=== PATIENT | male | born 1930 | race Caucasian/White ===

== ENCOUNTER 2018-11-15 19:59 | Inpatient (IN) | payer MEDICARE, BC ==
[~2018-11-15] VITALS: Ht 170.2 cm; Wt 78.0 kg
--- NOTE | 2018-11-15 20:10 | NUR ---
PAGED DR NEWMAN'S OFFICE FOR CONSULT
[2018-11-15] MEDS ORDERED: MEMA10TA PO (20:14)
[2018-11-15] MEDS ORDERED: LEVO50TA PO (20:14)
[2018-11-15] MEDS ORDERED: ASPI-1169 PO (20:14)
[2018-11-15] MEDS ORDERED: ATOR80TA PO (20:14)
[2018-11-15] MEDS ORDERED: ACET-73 PO (20:14)
[2018-11-15] MEDS ORDERED: OMEP20CA11 PO (20:14)
[2018-11-15] MEDS ORDERED: CILO100T PO (20:14)
[2018-11-15] MEDS ORDERED: METO25TA6 PO (20:14)
[2018-11-15] MEDS ORDERED: TAMS-12 PO (20:14)
[2018-11-15] MEDS ORDERED: MULT-213 PO (20:14)
[2018-11-15] MEDS ORDERED: [UNRECOGNIZED DRUG - CODE] TP (20:14)
[2018-11-15] MEDS ORDERED: ACET-907 PO (20:14)
--- NOTE | 2018-11-15 20:23 | NUR ---
FARSHAD FROM [facility] ON [facility]. TO ER BED 10. AAOX2. NO RESP DISTRESS NOTED. BROUGHT IN FOR L HIP FRACTURE. PT OBTAINED A FALL ON 11/11/18 AT THE FACILITY. STARTED TO COMPLAINT OF PAIN, XRAY DONE AND SHOWED FRACTURE ON L FEMORAL HEAD. PT NOTED +SHORTENING AND +EXTERNAL RORATION. PAIN 10/10 WITH MOVEMENT OTHER GARCIA NONE. MD WAS AT BEDSIDE. ORDERS RECEIVED, NOTED AND CARRIED OUT. IV LINE OBTAINED ON RFA 20G. BLOOD DRAW AND GIVEN TO VICE PRESIDENT OF TALENT MANAGEMENT AT BEDSIDE. XRAY AT BESIDE.
[2018-11-15 20:27] LABS: BASOPHILS # (AUTO) 0.1 /CMM (0.0-0.2); BASOPHILS % (AUTO) 0.5 % (0.0-2.0); EOSINOPHILS % (AUTO) 3.3 % (0.0-6.0); HEMATOCRIT 34 % (39-51); HEMOGLOBIN 11.6 g/dL (13.5-17.5); LYMPHOCYTES % (AUTO) 9.5 % (20.0-44.0); MEAN CORPUSCULAR HGB CONC 34 g/dl (31.0-36.0); MEAN CORPUSCULAR VOLUME 88 fL (80-96); NEUTROPHILS # (AUTO) 7.7 /CMM (1.8-8.9); NEUTROPHILS % (AUTO) 76.7 % (43.0-81.0); PLATELET COUNT (AUTO) 226 /CMM (150-450); RED BLOOD CELL COUNT(AUTO) 3.86 MIL/uL (4.5-6.0)
[2018-11-15] MEDS ORDERED: KETOROLAC TROMETHAMINE 15 MG/ML VIAL ONE (20:28)
[2018-11-15] MEDS ORDERED: IV NS 0.9% 1,000 ML BAG IV ONE (20:30)
[2018-11-15] MEDS ORDERED: KETOROLAC TROMETHAMINE INJ 30 MG/ML VIAL IV ONE (20:30)
--- NOTE | 2018-11-15 20:30 | NUR ---
RECIEVED BED 203
[2018-11-15 20:34] LABS: CALCIUM, SERUM 8.6 mg/dL (8.5-10.1); CARBON DIOXIDE 24 mmol/L (21-32); CHLORIDE 104 mmol/L (98-107); CREATININE 1.5 mg/dL (0.6-1.3); GLUCOSE 122 mg/dL (74-106); POTASSIUM 4.2 mmol/L (3.5-5.1); SODIUM SERUM 138 mmol/L (136-145); UREA NITROGEN, BLOOD 24 mg/dL (7-18)
--- NOTE | 2018-11-15 20:58 | NUR ---
REPORT GIVEN TO RV, RN FOR TERESITA/ PT TO ROOM 203
[2018-11-15 21:05] VITALS: BP 133/69
--- NOTE | 2018-11-15 21:05 | NUR ---
RECEIVED PATIENT FROM ER FOR DX LEFT HIP FRACTURE. AO X 1, ABLE TO MAKE NEEDS KNOWN. NO ACUTE DISTRESS NOTED. PATIENT HAS PAIN WHEN BEING MOVED ONLY. IV SITE PATENT, INTACT; FLUSHED. SKIN ASSESSMENT COMPLETED. HIP PRECAUTION MAINTAINED. SAFETY REMINDERS GIVEN. ON LOW BED WITH BILATERAL UPPER SIDE RAILS UP. CALL REICH WITHIN EASY REACH. WILL CONTINUE TO MONITOR. RECEIVED DR. LLOYD WELSH'S ORDERS ON PAPER; WILL CARRY OUT.
--- NOTE | 2018-11-15 21:30 | NUR ---
PT TRANSPORTED TO UNIT ON GURNEY WITH EMT AT BEDSIDE. PT IS STABLE TO BE TRANSPORTED TO UNIT. NAD NOTED PRIOR TO TRANSPORT.
[2018-11-15 21:48] VITALS: BP 133/69
[2018-11-15] MEDS: IV NS 0.9% 1,000 ML IV PRN (23:07)
--- NOTE | 2018-11-16 01:00 | NUR ---
PATIENT ASLEEP, EASILY AROUSABLE. NO ACUTE DISTRESS NOTED. WILL CONTINUE TO MONITOR.
--- NOTE | 2018-11-16 06:30 | NUR ---
PATIENT ASLEEP, EASILY AROUSABLE. RESPIRATIONS EVEN. NO SIGNS OF PAIN NOTED. NPO SINCE MIDNIGHT. IVF INFUSING ORDERED. NEEDS ATTENDED. KEPT CLEAN AND DRY. SAFETY PRECAUTIONS AND COMFORT MEASURES IN PLACE. WILL GIVE REPORT TO DAY SHIFT FOR CONTINUITY OF CARE.
[2018-11-16 06:43] LABS: BASOPHILS % (AUTO) 0.5 % (0.0-2.0); EOSINOPHILS % (AUTO) 2.9 % (0.0-6.0); HEMATOCRIT 30 % (39-51); HEMOGLOBIN 10.2 g/dL (13.5-17.5); LYMPHOCYTES % (AUTO) 9.7 % (20.0-44.0); MEAN CORPUSCULAR HGB CONC 34 g/dl (31.0-36.0); MEAN CORPUSCULAR VOLUME 88 fL (80-96); MONOCYTES # (AUTO) 0.8 /CMM (0.1-1.30); MONOCYTES % (AUTO) 8.4 % (2.0-12.0); NEUTROPHILS # (AUTO) 7.7 /CMM (1.8-8.9); NEUTROPHILS % (AUTO) 78.5 % (43.0-81.0); PLATELET COUNT (AUTO) 210 /CMM (150-450); RED BLOOD CELL COUNT(AUTO) 3.39 MIL/uL (4.5-6.0); WHITE BLOOD COUNT (AUTO) 9.8 K/uL (4.3-11.0)
[2018-11-16 06:56] LABS: CREATININE 1.3 mg/dL (0.6-1.3); MAGNESIUM 1.6 mg/dL (1.8-2.4); PHOSPHORUS 3.1 mg/dL (2.5-4.9); POTASSIUM 3.8 mmol/L (3.5-5.1)
--- NOTE | 2018-11-16 07:06 | NUR ---
RN OPENING NOTE PT WAS RECEIVED IN BED AT LOWEST AND LOCKED POSITION WITH SIDE RAILS UP X2, A/O X1 BREATHING EVEN AND UNLABORED ON RA WITH NO S/S OF ANY DISTRESS OR PAIN AT THIS TIME, IV IS PATENT AND INTACT WITH IVF RUNNING, INFORMED THAT PT HAS BUE DISCOLORATION; UPPER LIP SCAB; AND INTERGLUTEAL CLEFT WOUND WITH WOUND CARE CONSULT ORDERED. PER NIGHT RN SHE WAS UNABLE TO GET RECORDS FROM [facility] BUT WAS INFORMED THAT XRAY WAS DONE AT FACILITY AND PT WAS NOTED TO HAVE LEFT PROXIMAL FEMUR FX. SAFETY PRECAUTIONS IN PLACE, CALL LIGHT WITHIN REACH, WILL MONITOR PT ACCORDINGLY
[2018-11-16 08:00] VITALS: BP 136/63
[2018-11-16] MEDS: ENOXAPARIN SODIUM 40 MG/0.4 ML DISP.SYRIN SQ SCH (08:31)
--- NOTE | 2018-11-16 08:31 | NUR ---
RN NOTE PER DR. PATY MERIDA TO HOLD DOSE OF SCHEDULED LOVENOX DUE TO POSSIBLE SURGERY. SURGEON WILL COME AND ASSESS PT PER
[2018-11-16] MEDS: PANTOPRAZOLE 40 MG TABLET.DR PO SCH (08:42)
[2018-11-16] MEDS: MEMANTINE HCL 5 MG TABLET PO SCH ×2 (08:50→17:07)
[2018-11-16] MEDS: TAMSULOSIN 0.4 MG CAP.SR.24H PO SCH (08:50)
[2018-11-16] MEDS: METOPROLOL TARTRATE 25 MG TABLET PO SCH ×2 (08:50→17:07)
[2018-11-16] MEDS: MULTIVIT W/MINERALS 1 TAB TABLET PO SCH (08:51)
[2018-11-16] MEDS: LEVOTHYROXINE SODIUM 50 MCG TABLET PO SCH (08:51)
[2018-11-16] MEDS: CILOSTAZOL 100 MG TABLET PO SCH ×2 (08:51→17:07)
[2018-11-16] MEDS ORDERED: ACETAMINOPHEN 325 MG TABLET PO PRN (09:00)
--- NOTE | 2018-11-16 09:10 | NUR ---
RN NOTE ORDER FOR STAT EKG GIVEN BY , EKG DONE BY RT AND MADE AWARE OF RESULTS AT THIS TIME
--- NOTE | 2018-11-16 09:25 | NUR ---
RN NOTE XRAY DONE AT THIS TIME
[2018-11-16] MEDS: IV NS 0.9% 1,000 ML IV PRN (09:46)
[2018-11-16] MEDS: Magnesium 1GM/D5W 100ML PREMIX 100 ML IV SCH ×2 (11:18→12:07)
--- NOTE | 2018-11-16 11:48 | NUR ---
RN NOTE CALEB DESAI MADE AWARE OF CONSULT FOR PATIENT AT THIS TIME, WILL AWAIT TO BE SEEN BY SURGERY
--- NOTE | 2018-11-16 15:14 | NUR ---
RN NOTE REAL ELLIS MESSAGED AT THIS TIME REGARDING PT WANTING TO EAT, INFORMED THAT HE CAN EAT AND THAT SURGERY WILL BE DONE ON MONDAY IN AM
[2018-11-16 16:36] VITALS: BP 125/82
[2018-11-16] MEDS: ATORVASTATIN 40 MG TABLET PO SCH (17:06)
--- NOTE | 2018-11-16 18:20 | NUR ---
RN NOTE RIGHT FA IV REMOVED DUE TO INFILTRATION, NEW IV STARTED ON LEFT FA GAUGE 22 AT THIS TIME
--- NOTE | 2018-11-16 18:43 | NUR ---
RN CLOSING NOTE PT IN BED AT LOWEST AND LOCKED POSITION WITH SIDE RAILS UP X2, AWAKE AND ALERT BREATHING EVEN AND UNLABORED WITH NO DISTRESS OR ANY PAIN AT THIS TIME, IV IS PATENT AND INTACT, PLAN FOR SURGERY MONDAY IN AM, SAFETY PRECAUTIONS IN PLACE, CALL LIGHT WITHIN REACH, ALL NEEDS ATTENDED TO, WILL ENDORSE TO NIGHT RN FOR TERESITA.
[2018-11-16 20:00] VITALS: BP 133/66
--- NOTE | 2018-11-16 20:00 | NUR ---
MS RN NOTES RECEIVED PATIENT AWAKE AND CALM IN BED. NO DISTRESS NOTED. CALL LIGHT WITHIN REACH. NO C/O PAIN OR DISCOMFORT. PERIPHERAL LINE INTACT AND PATENT. BED IN LOW LOCK SETTING. ROOM FREE OF CLUTTER AND BELONGINGS KEPT NEAR BEDSIDE. BED ALARM ON AND FUNCTIONING PROPERLY. WILL CONTINUE TO MONITOR.
[2018-11-17 06:40] LABS: CALCIUM, SERUM 8.4 mg/dL (8.5-10.1); POTASSIUM 4.2 mmol/L (3.5-5.1)
--- NOTE | 2018-11-17 07:15 | NUR ---
MS RN NOTES PATIENT AWAKE IN BED WITH NO DISTRESS NOTED. CALL LIGHT WITHIN REACH. NO FURTHER C/O PAIN OR DISCOMFORT. ALL DUE MEDS GIVEN ORDERED WITH NO ASE NOTED. PERIPHERAL LINE INTACT AND PATENT. BED IN LOW LOCK SETTING. ALL BELONGINGS KEPT NEAR BEDSIDE. WILL ENDORSE TO ONCOMING SHIFT.
--- NOTE | 2018-11-17 07:33 | NUR ---
MS RN OPENING NOTES RECEIVED PT LAYING IN BED, A/O X1. RESPIRATIONS ARE EVEN AND UNLABORED, NOT IN ANY ACUTE DISTRESS NOTED. NO C/O PAIN AT THIS TIME, NO C/O SOB, N/V. IV SITE TO LFA INTACT, NO INFILTRATION NOTED. DRESSING KEPT CLEAN AND DRY. IV FLUIDS RUNNING AT 75ML/HR, TOLERATING WELL. SAFETY MEASURES ARE IN PLACE. INSTRUCTED PT TO USE CALL LIGHT WHEN ASSISTANCE IS NEEDED, CALL LIGHT IS LEFT WITHIN REACH. WILL MONITOR THROUGHOUT SHIFT FOR CONTINUITY OF CARE.
[2018-11-17 08:00] VITALS: BP 158/73
[2018-11-17] MEDS: CILOSTAZOL 100 MG TABLET PO SCH ×2 (08:30→17:27)
[2018-11-17] MEDS: MULTIVIT W/MINERALS 1 TAB TABLET PO SCH (08:31)
[2018-11-17] MEDS: TAMSULOSIN 0.4 MG CAP.SR.24H PO SCH (08:31)
[2018-11-17] MEDS: METOPROLOL TARTRATE 25 MG TABLET PO SCH ×2 (08:31→17:27)
[2018-11-17] MEDS: ENOXAPARIN SODIUM 40 MG/0.4 ML DISP.SYRIN SQ SCH ×2 (08:31→09:17)
[2018-11-17] MEDS: PANTOPRAZOLE 40 MG TABLET.DR PO SCH (08:31)
[2018-11-17] MEDS: LEVOTHYROXINE SODIUM 50 MCG TABLET PO SCH (08:31)
[2018-11-17] MEDS: MEMANTINE HCL 5 MG TABLET PO SCH ×2 (08:31→17:27)
--- NOTE | 2018-11-17 12:00 | NUR ---
MS RN NOTES-- DTR YOMI AT BEDSIDE, SIGNED CONSENTS FOR FATHER FOR PROCEDURE TOMORROW.
--- NOTE | 2018-11-17 12:45 | NUR ---
MS RN NOTES-- PT ABLE TO MAKE NEEDS KNOWN. NEEDS MET AND RENDERED. PT DOES NOT APPEAR TO BE IN ANY APPARENT DISTRESS. WILL CONTINUE TO MONITOR.
[2018-11-17] MEDS: IV NS 0.9% 1,000 ML IV PRN (14:53)
[2018-11-17 16:00] VITALS: BP 148/76
[2018-11-17] MEDS: ATORVASTATIN 40 MG TABLET PO SCH (17:27)
--- NOTE | 2018-11-17 18:41 | NUR ---
MS RN CLOSING NOTES ALL DUE MEDS GIVEN, NEEDS MET AND RENDERED. PT IS A/O X1, AFEBRILE. RESPIRATIONS ARE EVEN AND UNLABORED, NOT IN ANY ACUTE DISTRESS NOTED. PT DENIES ANY PAIN AT THIS TIME, NO C/O SOB, N/V. IV SITE TO LFA INTACT, NO INFILTRATION NOTED. DRESSING KEPT CLEAN AND DRY. SAFETY MEASURES ARE IN PLACE. WILL ENDORSE TO NEXT SHIFT FOR CONTINUITY OF CARE.
--- NOTE | 2018-11-17 19:50 | NUR ---
MS RN NOTES RECEIVED ON BED A/O X1,S/P FALL AT THE FACILITY 2 WEEKS AGO AND SUSTAINED LEFT HIP FRACTURE.PLAN SURGERY IN THE MORNING.WITH IVF NS AT 75ML/HR RATE ON LFA.FALL PRECAUTION OBSERVED.BED ON LOWEST POSITION AND LOCKED.CALL LIGHT IN REACH,NEEDS ANTICIPATED.
[2018-11-17 20:00] VITALS: BP 134/65
--- NOTE | 2018-11-18 03:00 | NUR ---
MS RN NOTES NOTED REDNESS ON IV SITE.NEW SALINE LOCK PLACE ON RIGHT WRIST #20,SAME IVF INFUSING
[2018-11-18] MEDS: MORPHINE SULFATE INJ 2 MG/ML DISP.SYRIN IV PRN ×2 (03:30→12:59)
--- NOTE | 2018-11-18 03:30 | NUR ---
MS RN NOTES PAIN MANAGEMENT APPEARS RESTLESS,MOANS WHEN REPOSITION.MEDICATED WITH MORPHINE SULFATE 2MG IV FOR SEVERE PAIN ORDERED
[2018-11-18] MEDS: IV NS 0.9% 1,000 ML IV PRN ×2 (04:55→23:09)
--- NOTE | 2018-11-18 06:37 | NUR ---
MS RN NOTES KEPT NPO POST MIDNIGHT FOR LEFT HI FRED ARTHROPLASTY THIS MORNING,NS AT 75ML/HR RATE IN PROGRESS.NPO EXCEPT MEDS.CALL I IN REACH,NEED ANTICIPATED.
[2018-11-18 07:10] LABS: BASOPHILS # (AUTO) 0.1 /CMM (0.0-0.2); BASOPHILS % (AUTO) 0.7 % (0.0-2.0); EOSINOPHILS % (AUTO) 2.9 % (0.0-6.0); HEMATOCRIT 30 % (39-51); HEMOGLOBIN 10.2 g/dL (13.5-17.5); LYMPHOCYTES # (AUTO) 1.2 /CMM (0.8-4.8); LYMPHOCYTES % (AUTO) 14.4 % (20.0-44.0); MEAN CORPUSCULAR HGB CONC 34 g/dl (31.0-36.0); MEAN CORPUSCULAR VOLUME 87 fL (80-96); MONOCYTES # (AUTO) 0.8 /CMM (0.1-1.30); MONOCYTES % (AUTO) 10.1 % (2.0-12.0); NEUTROPHILS # (AUTO) 5.8 /CMM (1.8-8.9); NEUTROPHILS % (AUTO) 71.9 % (43.0-81.0); PLATELET COUNT (AUTO) 271 /CMM (150-450); RED BLOOD CELL COUNT(AUTO) 3.46 MIL/uL (4.5-6.0); WHITE BLOOD COUNT (AUTO) 8.1 K/uL (4.3-11.0)
--- NOTE | 2018-11-18 07:20 | NUR ---
RN OPENING NOTES RECEIVED PATIENT IN BED RESTING. A/OX1. NOT IN ANY FORM OF DISTRESS. NO SOB. NO S/S OF PAIN OR DISCOMFORT AT THIS TIME. IV ACCESS INTACT AND PATENT. KEPT NPO. FOR SURGERY THIS AM. BED IN LOW/LOCKED POSITION, SIDERAILS UP,CALL LIGHT IN REACH. WILL CONTINUE TO MONIOTR ACCORDINGLY.
[2018-11-18 07:29] LABS: ALBUMIN 2.3 g/dL (3.4-5.0); BILIRUBIN,TOTAL 1.6 mg/dL (0.2-1.0); CALCIUM, SERUM 8.1 mg/dL (8.5-10.1); MAGNESIUM 1.8 mg/dL (1.8-2.4); PHOSPHORUS 2.7 mg/dL (2.5-4.9); POTASSIUM 3.8 mmol/L (3.5-5.1); TOTAL PROTEIN, SERUM 5.6 g/dL (6.4-8.2)
[2018-11-18] MEDS: LEVOTHYROXINE SODIUM 50 MCG TABLET PO SCH (07:30)
[2018-11-18] MEDS: PANTOPRAZOLE 40 MG TABLET.DR PO SCH (07:30)
[2018-11-18 08:00] VITALS: BP 152/67
[2018-11-18] MEDS ORDERED: ANESTHESIA TRAY IN PYXIS 1 EA TRAY MC ONE (08:24)
[2018-11-18] MEDS ORDERED: BACITRACIN 50000 UNITS/VIAL ONE (08:24)
[2018-11-18] MEDS ORDERED: BUPIVACAINE MPF 0.5% W/EPI INJ 30 ML VIAL ONE (08:25)
--- NOTE | 2018-11-18 08:45 | NUR ---
PATIENT PICKED UP FOR SURGERY. Addendum: 11/18/18 at 0859 by CALEB LARA ERIC MEDAlethea OLIVER ADMIN. PATIENT ON SURGERY
[2018-11-18] MEDS ORDERED: FENTANYL PF 100MCG/2ML AMPUL ONE (08:49)
[2018-11-18] MEDS ORDERED: ROCURONIUM BROMIDE 50 MG/5 ML ONE (08:49)
[2018-11-18] MEDS: CILOSTAZOL 100 MG TABLET PO SCH ×2 (09:00→16:32)
[2018-11-18] MEDS: ENOXAPARIN SODIUM 40 MG/0.4 ML DISP.SYRIN SQ SCH (09:00)
[2018-11-18] MEDS: MEMANTINE HCL 5 MG TABLET PO SCH ×2 (09:00→16:33)
[2018-11-18] MEDS: METOPROLOL TARTRATE 25 MG TABLET PO SCH ×2 (09:00→16:33)
[2018-11-18] MEDS: MULTIVIT W/MINERALS 1 TAB TABLET PO SCH (09:00)
[2018-11-18] MEDS: TAMSULOSIN 0.4 MG CAP.SR.24H PO SCH (09:00)
[2018-11-18 11:56] VITALS: BP 127/71
--- NOTE | 2018-11-18 12:00 | NUR ---
rn notes called mely villa, verified patient's diet. per nsg transportation department supervisor[facility], thin liquid, and no added salt.
--- NOTE | 2018-11-18 12:00 | NUR ---
patient came back from surgery. patient in stable condition. patient had left hip hemiarthroplasty. noted with abductor pillow, left knee immobilizer, and scd pumps in place. gudino catheter in place with clear yellow urine draining well. on 2lpm o2 via NC. orders to resume pre-op orders. will moniotr accordingly
[2018-11-18 12:30] VITALS: BP 129/70
--- NOTE | 2018-11-18 12:30 | NUR ---
rn notes girlfriend at bedside feeding the patient. patient tolerated well.
[2018-11-18 16:00] VITALS: BP 126/66
[2018-11-18] MEDS: CEFAZOLIN 2 GM in IV D5W 100 ML IV SCH (16:32)
[2018-11-18] MEDS: ATORVASTATIN 40 MG TABLET PO SCH (17:08)
--- NOTE | 2018-11-18 19:16 | NUR ---
rn closing notes patient in stable condition. all needs attended and provided. all due medications given as ordered. kept patient safe and comfortable. turned and repositioned every 2 hrs as needed. maintained hip precautions. bed in low/locked position, siderails upx2, call light in reach. endorsed to night rn for caroline.
--- NOTE | 2018-11-18 19:25 | NUR ---
MS RN NOTES RECEIVED LAYING COMFORTABLY ON BED,S/P LEFT HIP HEMIARTHROPLASTY TODAY 11/[address] GODWIN.DRESSING INTACT AND DRY,ICE PACK IN PLACE,DVT PUMP IN USED ,ON GEL BED FOR SKIN MANAGEMENT.WITH IVF NS AT 75ML/HR RATE VIA IV PUMP ON RIGHT WRIST,SITE PATENT.WILL CONTINUE TO MONITOR STATUS.
[2018-11-18 20:00] VITALS: BP 129/77
[2018-11-18 20:09] VITALS: BP 129/77
--- NOTE | 2018-11-18 23:14 | NUR ---
MS RN NOTES REPOSITION TO LEFT SIDE,ABDUCTION PILLOW IN PLACE
[2018-11-19] MEDS: CEFAZOLIN 2 GM in IV D5W 100 ML IV SCH ×2 (00:25→09:37)
[2018-11-19] MEDS: MORPHINE SULFATE INJ 2 MG/ML DISP.SYRIN IV PRN ×3 (03:59→23:20)
--- NOTE | 2018-11-19 03:59 | NUR ---
MS RN NOTES REPOSITION,SCREAMS,MEICATED WITH MORPHINE 2MG IV ORDERED
--- NOTE | 2018-11-19 06:31 | NUR ---
MS RN NOTES FAIRLY RESTED.PAIN MANAGEMENT EFFECTIVE.IVF IN PROGRESS AT SAME RATE.DVT PUMP IN USED..LEFT HIP INCISION DRESSING INTACT AND DRY.AFEBRILE.O2 USED ON AND OFF.WILL ENDORSE TO DAY PAZRSE FOR TERESITA.
[2018-11-19 07:10] LABS: BILIRUBIN,TOTAL 0.9 mg/dL (0.2-1.0); CALCIUM, SERUM 7.7 mg/dL (8.5-10.1); CREATININE 1.2 mg/dL (0.6-1.3); MAGNESIUM 1.7 mg/dL (1.8-2.4); PHOSPHORUS 2.6 mg/dL (2.5-4.9); POTASSIUM 4.1 mmol/L (3.5-5.1); TOTAL PROTEIN, SERUM 5.3 g/dL (6.4-8.2)
[2018-11-19 07:15] LABS: BASOPHILS % (AUTO) 0.1 % (0.0-2.0); HEMATOCRIT 28 % (39-51); HEMOGLOBIN 9.4 g/dL (13.5-17.5); LYMPHOCYTES # (AUTO) 0.7 /CMM (0.8-4.8); MEAN CORPUSCULAR HGB CONC 34 g/dl (31.0-36.0); MEAN CORPUSCULAR VOLUME 88 fL (80-96); MONOCYTES # (AUTO) 1.1 /CMM (0.1-1.30); MONOCYTES % (AUTO) 8.9 % (2.0-12.0); NEUTROPHILS # (AUTO) 10.3 /CMM (1.8-8.9); PLATELET COUNT (AUTO) 297 /CMM (150-450); RED BLOOD CELL COUNT(AUTO) 3.22 MIL/uL (4.5-6.0); WHITE BLOOD COUNT (AUTO) 12.1 K/uL (4.3-11.0)
--- NOTE | 2018-11-19 07:30 | NUR ---
MS/RN Patient received. Patient received from slot shift supervisor. A/O X1-2, appears in no distress or discomfort at this time. IV fluids continue at 75ml/hr, no signs of infiltration seen. Safety measures in place, side rails X3 in upright position, brakes locked, bed alarm working. Will continue to monitor and ensure safety.
[2018-11-19] MEDS: PANTOPRAZOLE 40 MG TABLET.DR PO SCH (07:57)
[2018-11-19] MEDS: LEVOTHYROXINE SODIUM 50 MCG TABLET PO SCH (07:57)
[2018-11-19 08:00] VITALS: BP 134/62
[2018-11-19] MEDS: MULTIVIT W/MINERALS 1 TAB TABLET PO SCH (08:17)
[2018-11-19] MEDS: ACETAMINOPHEN ES 500 MG TABLET PO PRN (08:17)
[2018-11-19] MEDS: TAMSULOSIN 0.4 MG CAP.SR.24H PO SCH (08:17)
[2018-11-19] MEDS: METOPROLOL TARTRATE 25 MG TABLET PO SCH ×2 (08:18→16:26)
[2018-11-19] MEDS: MEMANTINE HCL 5 MG TABLET PO SCH ×2 (08:18→16:26)
[2018-11-19] MEDS: NEOMY SULF/BACITRAC ZN/POLY 15 GM TUBE TP SCH ×2 (08:20→16:28)
[2018-11-19] MEDS: CILOSTAZOL 100 MG TABLET PO SCH ×2 (08:20→17:00)
[2018-11-19] MEDS: ENOXAPARIN SODIUM 40 MG/0.4 ML DISP.SYRIN SQ SCH (08:20)
--- NOTE | 2018-11-19 08:30 | NUR ---
MS/RN S/B Dr Mahoney Seen by Dr Mahoney - no new orders, possible ARU placement upon discharge.
--- NOTE | 2018-11-19 08:50 | NUR ---
MS/RN Diet change Diet changed to puree as patient having trouble chewing due to lack of dentures.
--- NOTE | 2018-11-19 09:00 | NUR ---
MS/RN Medications Morning medications administered as ordered, crushed with apple sauce.
[2018-11-19] MEDS: Magnesium 1GM/D5W 100ML PREMIX 100 ML IV SCH ×2 (09:38→10:33)
--- NOTE | 2018-11-19 10:17 | NUR ---
WOUND CARE CONSULT WOUND CARE RECEIVED CONSULT FOR INTERFLUTEAL CLEFT OPEN AREA, LEFT LATERAL HEEL POSSIBLE DTI. WOUND CARE WILL DEFER CONSULT AND TREATMENT PLANS TO PLASTIC SURGICAL TEAM INCLUDING DPM WHO ARE ALL CURRENTLY FOLLOWING THIS PATIENT. PATIENT WITH LUIS AT 16, ALL PRESSURE ULCER PREVENTION MEASURES ARE NOTED TO BE IN PLACE AT THIS TIME. WILL SEE PRN.
--- NOTE | 2018-11-19 11:29 | NUR ---
MS/RN S/B Dr Churchill Seen by Dr Churchill - continue with all current medications and physical therapy.
[2018-11-19] MEDS: IV NS 0.9% 1,000 ML IV PRN (13:39)
[2018-11-19] MEDS: Z GUARD REMEDY 2 OZ OINT TP SCH ×2 (13:52→21:29)
[2018-11-19] MEDS: CLOTRIMAZOLE 1% 15 GM TUBE TP SCH ×2 (13:52→16:28)
--- NOTE | 2018-11-19 13:52 | NUR ---
MS/RN S/B Wound care Seen by wound care - orders noted and carried out. Left elbow: -cleanse with normal saline, pat drt, apply triple antibiotic ointment BID and prn. Left knee scab: -cleanse with normal saline, pat dry, and paint with betadine daily and prn. Buttocks: -apply z guard every shift and prn at each diaper change, Scrotum: -apply lotrimin every shift and prn.
[2018-11-19 16:00] VITALS: BP 110/64
[2018-11-19 16:10] VITALS: BP 110/64
[2018-11-19] MEDS: ATORVASTATIN 40 MG TABLET PO SCH (17:42)
--- NOTE | 2018-11-19 18:14 | NUR ---
MS/RN End note Patient remains in stable condition, all needs attended. Wound care as ordered, heels off loaded on pillows, assisted to turn and reposition every two to three hours to prevent further skin breakdown. Buttocks at this time pink, z guard applied to protect skin. Safety measures remain in place, bed alarm on, side rails X3 in upright position. Will continue to monitor and endorse to warehouse worker 2nd shift.
--- NOTE | 2018-11-19 19:35 | NUR ---
RN MS OPENING NOTE RECEIVED PT I BED, AWAKE ALERT ORIENTED X 1-2 HARD OF HEARING. BREATHING EVEN AND UNLABORED ON 2L OF NC. NO COMPLAINT OF PAIN OR DISCOMFORT AT THIS TIME. IV ACCESS ON THE R WRIST 20G WITH NS @75ML/HR. MARIE CATH IN PLACE, BED IN LOWEST LOCKED POSITION, CALL LIGHT WITHIN REACH AT ALL TIMES, WILL CONTINUE TO MONITOR.
[2018-11-19 20:00] VITALS: BP 124/62
[2018-11-19 21:31] VITALS: BP 124/62
[2018-11-20] MEDS: IV NS 0.9% 1,000 ML IV PRN (02:11)
--- NOTE | 2018-11-20 06:10 | NUR ---
RN MS CLOSING NOTE PT REMAINS IN BED, AWAKE ALERT ORIENTED X 1-2 HARD OF HEARING. BREATHING EVEN AND UNLABORED ON 2L OF NC. NO COMPLAINT OF PAIN OR DISCOMFORT AT THIS TIME. IV ACCESS ON THE R WRIST 20G WITH NS @75ML/HR. MARIE CATH IN PLACE, BED IN LOWEST LOCKED POSITION, PT CARE RENDERED, MADE COMFORTABLE. CALL LIGHT WITHIN REACH AT ALL TIMES, WILL ENDORSE TO DAY NURSE FOR TERESITA.
--- NOTE | 2018-11-20 07:56 | NUR ---
MS/RN Patient received Patient received from manager market development, sleeping soundly at this time. Appears comfortable, in no distress. IV fluids conitnue to infuse at 75ml/hr, no signs of infiltration seen. Safety measures remain in place, bed in low setting, bed alarm switched on, side rails X3 in upright position. Call light within reach. Will continue to monitor and ensure safety.
[2018-11-20 08:00] VITALS: BP 133/68
[2018-11-20] MEDS: ACETAMINOPHEN ES 500 MG TABLET PO PRN (08:17)
[2018-11-20] MEDS: CILOSTAZOL 100 MG TABLET PO SCH (08:17)
[2018-11-20] MEDS: LEVOTHYROXINE SODIUM 50 MCG TABLET PO SCH (08:17)
[2018-11-20] MEDS: MULTIVIT W/MINERALS 1 TAB TABLET PO SCH (08:17)
[2018-11-20] MEDS: TAMSULOSIN 0.4 MG CAP.SR.24H PO SCH (08:17)
[2018-11-20] MEDS: MEMANTINE HCL 5 MG TABLET PO SCH (08:17)
[2018-11-20] MEDS: PANTOPRAZOLE 40 MG TABLET.DR PO SCH (08:17)
[2018-11-20] MEDS: METOPROLOL TARTRATE 25 MG TABLET PO SCH (08:18)
[2018-11-20] MEDS: ENOXAPARIN SODIUM 40 MG/0.4 ML DISP.SYRIN SQ SCH (08:18)
[2018-11-20] MEDS: Z GUARD REMEDY 2 OZ OINT TP SCH (08:19)
[2018-11-20] MEDS: CLOTRIMAZOLE 1% 15 GM TUBE TP SCH (08:19)
[2018-11-20] MEDS: NEOMY SULF/BACITRAC ZN/POLY 15 GM TUBE TP SCH (08:19)
[2018-11-20] MEDS ORDERED: ENOX40DI SQ (08:45)
--- NOTE | 2018-11-20 09:15 | NUR ---
MS/RN S/B Dr Azevedo Seen by Dr Azevedo - patient to be discharged back to SNF today, with order to continue lovenox 30mg BID.
--- NOTE | 2018-11-20 12:00 | NUR ---
MS/RN Pictures Pictures taken and placed in chart ready for discharge later today.
--- NOTE | 2018-11-20 13:10 | NUR ---
MS/routing clerk orders Per Primitivo Oden - left knee immobilizer to remain in place only when patient is up with physical therapy ambulating, until follow up appointment.
--- NOTE | 2018-11-20 13:20 | NUR ---
MS/RN Report Report called to Andreia at [facility].
[2018-11-20 16:00] VITALS: BP 104/91
--- NOTE | 2018-11-20 16:31 | NUR ---
MS/hydrochloric area supervisor Patient discharged instable condition to [facility]. Heplock and name bands removed. All personal belongings accounted for on belongings list. Exit care prepared along with copy of chart. All wound care carried out, dressings changed, pictures taken. Left facility accompanied by paramedics. Family aware of transfer.
== END 2018-11-20 16:15 | DRG 469 ==
LOC: ER 20:01 → MEDSG2 20:37 → MED 11-16 20:08
PROVIDERS: ADMIT Internal Medicine; ATTEND Internal Medicine
PROC: 0SRS0JZ Replacement of Left Hip Joint, Femoral Surface with Synthetic Substitute, Open Approach (ICD-10-PCS; principal; 2018-11-15)
DX: S72.012A Unspecified intracapsular fracture of left femur, initial encounter for closed fracture (principal); N17.0 Acute kidney failure with tubular necrosis; W18.30XA Fall on same level, unspecified, initial encounter; Y92.009 Unspecified place in unspecified non-institutional (private) residence as the place of occurrence of the external cause; D63.8 Anemia in other chronic diseases classified elsewhere; E78.5 Hyperlipidemia, unspecified; D50.0 Iron deficiency anemia secondary to blood loss (chronic); I12.9 Hypertensive chronic kidney disease with stage 1 through stage 4 chronic kidney disease, or unspecified chronic kidney disease; N18.9 Chronic kidney disease, unspecified; Z79.82 Long term (current) use of aspirin; Z79.899 Other long term (current) drug therapy; L89.620 Pressure ulcer of left heel, unstageable; E03.9 Hypothyroidism, unspecified; N40.0 Benign prostatic hyperplasia without lower urinary tract symptoms; Z79.02 Long term (current) use of antithrombotics/antiplatelets; Z79.890 Hormone replacement therapy; S50.312A Abrasion of left elbow, initial encounter; S80.212A Abrasion, left knee, initial encounter; L30.4 Erythema intertrigo; L98.9 Disorder of the skin and subcutaneous tissue, unspecified
CPT/HCPCS: 36415; 71045-TC; 73020; 73552; 80048-TC; 80053-TC; 83735-TC; 84100-TC; 85025-TC; 85730-TC; 86850-TC; 87081-TC; 97110-TC; 97530-TC; G0378; J0690; J1650; J1885; J2270; J2704; J2710; J3010; J3475; J3490; J7030; J7060

== ENCOUNTER 2018-12-04 11:20 | Inpatient (IN) | payer MEDICARE, BC ==
[~2018-12-04] VITALS: Ht 170.2 cm; Wt 77.1 kg
[~2018-12-04 11:20] MED LIST: ACET-73 PO; ACET-907 PO; ASPI-1169 PO; ATOR80TA PO; CILO100T PO; ENOX40DI SQ; LEVO50TA PO; MEMA10TA PO; METO25TA6 PO; MULT-213 PO; OMEP20CA11 PO; TAMS-12 PO; [UNRECOGNIZED DRUG - CODE] TP
--- NOTE | 2018-12-04 11:58 | NUR ---
patient BIBGF from snf, c/o left hip pain, possible dislocation, on room air, breathing evenly and unlabored. Connected to the monitor and pulse ox. kept comfortable, will continue to monitor accordingly.
[2018-12-04] MEDS ORDERED: FERR325T23 PO (12:01)
[2018-12-04] MEDS ORDERED: CALC-481 PO (12:01)
[2018-12-04] MEDS ORDERED: ASCO500T9 PO (12:01)
[2018-12-04] MEDS ORDERED: PROT946L PO (12:01)
--- NOTE | 2018-12-04 12:12 | NUR ---
PAGED [facility].
[2018-12-04 12:18] LABS: BASOPHILS # (AUTO) 0.1 /CMM (0.0-0.2); BASOPHILS % (AUTO) 0.6 % (0.0-2.0); EOSINOPHILS % (AUTO) 2.5 % (0.0-6.0); HEMATOCRIT 27 % (39-51); HEMOGLOBIN 8.8 g/dL (13.5-17.5); LYMPHOCYTES # (AUTO) 1.1 /CMM (0.8-4.8); LYMPHOCYTES % (AUTO) 10.7 % (20.0-44.0); MEAN CORPUSCULAR HGB CONC 33 g/dl (31.0-36.0); MEAN CORPUSCULAR VOLUME 87 fL (80-96); MONOCYTES # (AUTO) 0.9 /CMM (0.1-1.30); MONOCYTES % (AUTO) 9.3 % (2.0-12.0); NEUTROPHILS # (AUTO) 7.7 /CMM (1.8-8.9); NEUTROPHILS % (AUTO) 76.9 % (43.0-81.0); PLATELET COUNT (AUTO) 491 /CMM (150-450); RED BLOOD CELL COUNT(AUTO) 3.06 MIL/uL (4.5-6.0)
[2018-12-04 12:24] LABS: CALCIUM, SERUM 8.5 mg/dL (8.5-10.1); CARBON DIOXIDE 21 mmol/L (21-32); CHLORIDE 106 mmol/L (98-107); CREATININE 1.1 mg/dL (0.6-1.3); GLUCOSE 131 mg/dL (74-106); SODIUM SERUM 137 mmol/L (136-145); UREA NITROGEN, BLOOD 20 mg/dL (7-18)
[2018-12-04 12:30] LABS: ALANINE AMINOTRANSFERASE 20 U/L (12-78); ALBUMIN 2.3 g/dL (3.4-5.0); ALKALINE PHOSPHATASE 107 U/L (46-116); ASPARTATE AMINOTRANSFERASE 27 U/L (15-37); BILIRUBIN,DIRECT 0.2 mg/dL (0.0-0.2); BILIRUBIN,TOTAL 0.9 mg/dL (0.2-1.0); TOTAL PROTEIN, SERUM 6.2 g/dL (6.4-8.2)
--- NOTE | 2018-12-04 12:32 | NUR ---
EPIC ON-CALL PAGED AGAIN
--- NOTE | 2018-12-04 12:47 | NUR ---
AUBREY SALDIVAR GAVE BED 114-2.
--- NOTE | 2018-12-04 13:13 | NUR ---
PAGED [employer] FOR THIRD TIME.
--- NOTE | 2018-12-04 13:26 | NUR ---
PAGED [facility].
--- NOTE | 2018-12-04 13:56 | NUR ---
report given to Mark STOCKTON for caroline.
--- NOTE | 2018-12-04 14:18 | NUR ---
wheeled patient via gurney accompanied by RN and EMT in no apparent distress noted. Mark RN at bedside to assume care.
[2018-12-04] MEDS ORDERED: MISCELLANEOUS MED 1 EA EA PO PRN (14:30)
[2018-12-04] MEDS ORDERED: ONDANSETRON HCL/PF 4 MG/2 ML VIAL IVP PRN (14:30)
[2018-12-04] MEDS ORDERED: ZOLPIDEM TARTRATE 5 MG TABLET PO PRN (14:30)
[2018-12-04] MEDS ORDERED: ACETAMINOPHEN 325 MG TABLET PO PRN (14:30)
[2018-12-04] MEDS ORDERED: Z GUARD REMEDY 2 OZ OINT TP PRN (14:30)
[2018-12-04] MEDS ORDERED: MAG HYDROX/AL HYDROX/SIMETH 30 ML UDC PO PRN (14:30)
[2018-12-04] MEDS ORDERED: ACETAMINOPHEN W/ CODEINE#3 1 EA TABLET PO PRN (14:30)
[2018-12-04] MEDS ORDERED: MAGNESIUM HYDROXIDE 30 ML UDC PO PRN (14:30)
--- NOTE | 2018-12-04 14:30 | NUR ---
MS RN OPENING NOTE RECEIVED REPORT FROM ER NURSE.[place] [id number].PATIENT AXOX1 WITH CONFUSION.ON RA.NO SOB NO DISTRESS NOTED.IV ON LH INTACT AND PATNET.BODY CHECK DONE.SAFETY AND ASPIRATION PRECAUTIONS IN PLACE.BED IS LOCKED AND IN LOW POSITION.CALL LIGHT IN REACH.BED ALARM ON.SRX3.WILL CONTINUE TO MONITOR.
[2018-12-04] MEDS: IV NS 0.9% 1,000 ML IV PRN (14:51)
[2018-12-04 16:00] VITALS: BP_SYST 90; BP_DIAS 64; BP_DIAS 69
[2018-12-04 16:16] LABS: IRON, SERUM 37 ug/dl (50-175); TOTAL IRON BINDING CAPACITY 196 ug/dl (250-450)
[2018-12-04 16:30] LABS: FERRITIN 121 ng/mL (8-388)
[2018-12-04] MEDS: METOPROLOL TARTRATE 25 MG TABLET PO SCH (17:00)
[2018-12-04] MEDS: CILOSTAZOL 100 MG TABLET PO SCH (17:52)
--- NOTE | 2018-12-04 19:00 | NUR ---
MS RN CLOSING NOTE SEEN BY ,UPDATED ABOUT PATIENT CONDITION WITH VITALS BP 90/67.HOLD BP MEEDS IF IT LOW.WILL CONTINUE TO MONITOR.PA OF WILL COME AND SEE THE PATIENT.WILL ENDORSE TO PM NURSE FOR TERESITA.
--- NOTE | 2018-12-04 19:30 | NUR ---
MS RN OPENING NOTE RECEIVED PATIENT A/O X1 PATIENT HAS HISTORY OF DEMENTIA. SHOWING SOME SIGN OF DISTRESS OF PAIN WILL ADMINISTER PAIN MEDICATION. PATIENT IS ON ROOM AIR WITH NO SIGNS OF SOB. PATIENT HAS IV ON RIGHT HAND G#20 WITH NS RUNNING AT 75ML.HR. PATIENT IS ON BED REST WITH BED ALARM ON. ALL SAFETY PRECAUTIONS APPLIED WILL CONTINUE TO MONITOR
[2018-12-04 20:00] VITALS: BP 130/64
[2018-12-05] VITALS (8 sets, daily range): BP systolic 110–147; BP diastolic 63–68
[2018-12-05] MEDS: IV NS 0.9% 1,000 ML IV PRN ×2 (03:14→20:09)
[2018-12-05] MEDS: HYDROCODONE/APAP 5/325MG 1 EACH TABLET PO PRN ×2 (03:31→09:13)
--- NOTE | 2018-12-05 07:24 | NUR ---
MS RN CLOSING NOTE PATIENT IN BED RESTING WITH NO SIGNS OF DISTRESS, ON ROOM AIR AND NO SOB. PROVIDED ALL SAFETY PRECAUTIONS APPLIED. ENDORSED PATIENT TO MORNING NURSE.
[2018-12-05] MEDS: PANTOPRAZOLE 40 MG TABLET.DR PO SCH (07:54)
[2018-12-05 08:07] LABS: CALCIUM, SERUM 8.1 mg/dL (8.5-10.1); MAGNESIUM 1.7 mg/dL (1.8-2.4); PHOSPHORUS 2.9 mg/dL (2.5-4.9); POTASSIUM 4.2 mmol/L (3.5-5.1)
[2018-12-05 08:27] LABS: BASOPHILS % (AUTO) 0.3 % (0.0-2.0); EOSINOPHILS % (AUTO) 4.6 % (0.0-6.0); HEMATOCRIT 24 % (39-51); LYMPHOCYTES # (AUTO) 1.1 /CMM (0.8-4.8); LYMPHOCYTES % (AUTO) 15.1 % (20.0-44.0); MEAN CORPUSCULAR HGB CONC 33 g/dl (31.0-36.0); MEAN CORPUSCULAR VOLUME 86 fL (80-96); MONOCYTES # (AUTO) 0.4 /CMM (0.1-1.30); NEUTROPHILS # (AUTO) 5.2 /CMM (1.8-8.9); PLATELET COUNT (AUTO) 416 /CMM (150-450); RED BLOOD CELL COUNT(AUTO) 2.79 MIL/uL (4.5-6.0)
[2018-12-05] MEDS ORDERED: [UNRECOGNIZED DRUG - OTHER] TP SCH (09:00)
[2018-12-05] MEDS: LEVOTHYROXINE SODIUM 50 MCG TABLET PO SCH (09:24)
[2018-12-05] MEDS: ASCORBIC ACID 500 MG TABLET PO SCH (09:24)
[2018-12-05] MEDS: CILOSTAZOL 100 MG TABLET PO SCH (09:25)
[2018-12-05] MEDS: MULTIVIT W/MINERALS 1 TAB TABLET PO SCH (09:25)
[2018-12-05] MEDS: FERROUS SULFATE (325 MG) 325 MG/TAB TABLET PO SCH (09:25)
[2018-12-05] MEDS: CALCIUM CARB 250MG /VITAMIN D 1 UDTAB PO SCH (09:25)
[2018-12-05] MEDS: METOPROLOL TARTRATE 25 MG TABLET PO SCH ×2 (09:25→17:00)
[2018-12-05] MEDS: TAMSULOSIN 0.4 MG CAP.SR.24H PO SCH (09:25)
[2018-12-05] MEDS: ASPIRIN 81 MG TAB.CHEW PO SCH (09:25)
[2018-12-05] MEDS: PROSOURCE / PROSTAT (PYXIS) 30 ML UDC PO SCH (09:29)
[2018-12-05] MEDS ORDERED: Magnesium 1GM/D5W 100ML PREMIX 100 ML IV SCH (11:30)
--- NOTE | 2018-12-05 18:30 | NUR ---
Patient was NPO after lunch for close reduction of the lip hip but procedure was cancelled and rescheduled tomorrow. Placed back on previous diet. Awaiting for dinner tray.
--- NOTE | 2018-12-05 19:13 | NUR ---
Report given to Nancy STOCKTON. Patient asleep in bed. HOB elevated. Room air. Not in any form of distress. NS infusing well to the left hand PIVL, site no signs and symptoms of phlebitis/infiltration. NPO after midnight. Scheduled for close reduction in OR michael.
--- NOTE | 2018-12-05 19:38 | NUR ---
MS RN NOTE RECEIVED PATIENT IN BED COMFORTABLY A/O X2 WITH SOME CONFUSION. PATIENT IS ON ROOM AIR WITH NO SOB OR ANY OTHER DISTRESS. PATIENT IS ON BED REST WITH SIDE RAILS UP X3. REPORTS NO PAIN AT THE MOMENT. APPLIED ALL SAFETY PRECAUTIONS CALL LIGHT WITHIN REACH, BED LOCKED IN LOW POSITION. WILL CONTINUE TO MONITOR.
[2018-12-06 04:00] VITALS: BP 134/71
[2018-12-06 07:25] LABS: CALCIUM, SERUM 8.4 mg/dL (8.5-10.1); CREATININE 0.9 mg/dL (0.6-1.3); MAGNESIUM 1.8 mg/dL (1.8-2.4); POTASSIUM 3.8 mmol/L (3.5-5.1)
[2018-12-06 07:29] LABS: BASOPHILS % (AUTO) 0.4 % (0.0-2.0); EOSINOPHILS % (AUTO) 5.4 % (0.0-6.0); HEMATOCRIT 28 % (39-51); LYMPHOCYTES # (AUTO) 1.1 /CMM (0.8-4.8); LYMPHOCYTES % (AUTO) 17.3 % (20.0-44.0); MEAN CORPUSCULAR HGB CONC 33 g/dl (31.0-36.0); MEAN CORPUSCULAR VOLUME 86 fL (80-96); MONOCYTES # (AUTO) 0.6 /CMM (0.1-1.30); MONOCYTES % (AUTO) 9.1 % (2.0-12.0); NEUTROPHILS # (AUTO) 4.2 /CMM (1.8-8.9); NEUTROPHILS % (AUTO) 67.8 % (43.0-81.0); PLATELET COUNT (AUTO) 369 /CMM (150-450); RED BLOOD CELL COUNT(AUTO) 3.22 MIL/uL (4.5-6.0); WHITE BLOOD COUNT (AUTO) 6.2 K/uL (4.3-11.0)
[2018-12-06] MEDS: PANTOPRAZOLE 40 MG TABLET.DR PO SCH (07:30)
--- NOTE | 2018-12-06 07:39 | NUR ---
MS RN CLOSING NOTE PATIENT IN BED WITH NO DISTRESS. ON ROOM AIR AND NO SOB. ALL SAFETY PRECAUTIONS APPLIED. BED ALARM ON, BED LOCKED IN LOW POSITION, AND CALL LIGHT WITHIN REACH. ENDORSED PATIENT TO MORNING NURSE.
--- NOTE | 2018-12-06 07:57 | NUR ---
MS RN OPENING NOTES Received Patient awake and resting in bed. A/O x 1 with episodes of confusion and history of dementia. VS stable with no acute distress. Breathing even and unlabored on room air with no respiratory distress. Denies pain. No signs and symptoms of pain. 20g PIV on left hand, clean, dry, intact and flushing well with NS running at 75ml/hr. NPO precautions in place. Safety precautions in place. Bed locked and set to lowest position with side rails x [address] up[address] Bed alarm [address] place. All needs rendered at this time. Call light with in reach. Will continue to monitor.
--- NOTE | 2018-12-06 08:34 | NUR ---
WOUND CARE CONSULT WOUND CARE RECEIVED CONSULT FOR NEW ADMIT. WOUND CARE WILL DEFER CONSULT AND TREATMENT PLANS TO PLASTIC SURGICAL TEAM INCLUDING DPBang RENEE WHO ARE ALL CURRENTLY FOLLOWING THIS PATIENT. PATIENT WITH LUIS AT 10, ALL PRESSURE ULCER PREVENTION MEASURES ARE NOTED TO BE IN PLACE. WILL SEE PRN.
[2018-12-06] MEDS: MULTIVIT W/MINERALS 1 TAB TABLET PO SCH (09:00)
[2018-12-06] MEDS: ENSURE ENLIVE 237 ML LIQUID (VANILLA) PO SCH ×4 (09:00→17:00)
[2018-12-06] MEDS: TAMSULOSIN 0.4 MG CAP.SR.24H PO SCH (09:00)
[2018-12-06] MEDS: METOPROLOL TARTRATE 25 MG TABLET PO SCH ×2 (09:00→17:00)
[2018-12-06] MEDS: ASPIRIN 81 MG TAB.CHEW PO SCH (09:00)
[2018-12-06] MEDS: LEVOTHYROXINE SODIUM 50 MCG TABLET PO SCH (09:00)
[2018-12-06] MEDS: CILOSTAZOL 100 MG TABLET PO SCH ×3 (09:00→17:00)
[2018-12-06] MEDS: CALCIUM CARB 250MG /VITAMIN D 1 UDTAB PO SCH (09:00)
[2018-12-06] MEDS: FERROUS SULFATE (325 MG) 325 MG/TAB TABLET PO SCH (09:00)
[2018-12-06] MEDS: PROSOURCE / PROSTAT (PYXIS) 30 ML UDC PO SCH (09:00)
[2018-12-06] MEDS: ASCORBIC ACID 500 MG TABLET PO SCH (09:00)
--- NOTE | 2018-12-06 09:36 | NUR ---
MS RN NOTES Spoke with Ilene, incident response coordinator of Dr. Saldana, at this time in regards to Patients possible surgery. Per Ilene, she will contact Dr. Saldana and call back with more information. Patient in stable condition. Will continue to monitor. phone # ext. [phone]
--- NOTE | 2018-12-06 10:08 | NUR ---
MS RN NOTES Patient A/O x 1 pulled out PIV on left hand. PIV intact. Patient in stable condition. Will continue to monitor.
--- NOTE | 2018-12-06 14:59 | NUR ---
MS RN NOTES Inserted 20g PIV on left hand. Patient tolerated well. Running IVF NS at 75ml/hr. Patient in stable condition. Will continue to monitor.
[2018-12-06 16:00] VITALS: BP 132/68
--- NOTE | 2018-12-06 16:40 | NUR ---
MS RN NOTES Obtained verbal consent via phone from Maryann (Daughter DPOA) for blood transfusion. Cosigned with Daisy STOCKTON. Will continue to monitor.
[2018-12-06] MEDS ORDERED: ANESTHESIA TRAY IN PYXIS 1 EA TRAY MC ONE (16:44)
--- NOTE | 2018-12-06 16:58 | NUR ---
MS RN NOTES Patient taken to OR for Closed Reduction of Left Hip at this time. Patient in stable condition.
[2018-12-06] MEDS ORDERED: FENTANYL PF 100MCG/2ML AMPUL ONE ×2 (18:28→18:49)
--- NOTE | 2018-12-06 19:20 | NUR ---
MS1 RN NOTES RECEIVED FROM SURGERY, S/P LEFT HIP CLOSED REDUCTION,ABDUCTION PILLOW IN PLACE.ICE PACK IN PLACE LEFT HIP.IVF NS AT 75 ML/HR RATE RE STARTED,INFUSING VIA IV PUMP ON LEFT HAND.O2 IN USED AT 2L/NC.O2 SAT 98%.VITAL SIGNS WITH IN NORMAL LIMITS UPON CHECKING ON THE FLOOR.SITTER AT BEDSIDE.WILL CONTINUE TO MONITOR STATUS.
--- NOTE | 2018-12-06 19:43 | NUR ---
MS RN CLOSING NOTES Patient returned from OR at 191. Received Patient resting and asleep in bed. A/O x 1 with episodes of confusion and history of dementia. VS stable with no acute distress. Breathing even and unlabored on 4LPM via NC with no respiratory distress. No signs and symptoms of pain at this time. 20g PIV on left hand, clean, dry, intact and flushing well with NS running at 75ml/hr. Wound dressings clean, dry and intact. Safety precautions in place. Bed locked and set to lowest position with side rails x 3 up. Sitter at bedside. Bed alarm in place. All needs rendered at this time. Call light with in reach. Will endorse plan of care to oncoming shift.
[2018-12-06 20:00] VITALS: BP 122/66
[2018-12-06] MEDS: IV NS 0.9% 1,000 ML IV PRN (20:39)
--- NOTE | 2018-12-07 02:30 | NUR ---
MS1 RN NOTES AWAKE THIS TIME,DIAPER WET,CLEAN AND KEPT DRY.REPOSITION.ABDUCTION PILLOW IN PLACE.
[2018-12-07] MEDS: HYDROCODONE/APAP 5/325MG 1 EACH TABLET PO PRN ×2 (02:43→09:03)
--- NOTE | 2018-12-07 02:43 | NUR ---
MS1 RN NOTES IN PAIN,FACIAL GRIMACE NOTED AND MOANING.MEDICATED WITH NORCO 5/325MG,1 TAB PO GIVEN WITH APPLE SAUCE,TAKEN WELL.NEGATIVE FOR ASPIRATION.
--- NOTE | 2018-12-07 06:21 | NUR ---
MS1 RN CLOSING NOTES CALM AND QUIET THRU OUT SHIFT.PAIN MANAGEMENT EFFECTIVE,ABDUCTION PILLOW IN PLACE.SITTER AT BEDSIDE.IN NO ACUTE DISTRESS.WILL ENDORSE TO DAY NURSE FOR TERESITA.
[2018-12-07 07:01] LABS: BASOPHILS % (AUTO) 0.6 % (0.0-2.0); EOSINOPHILS % (AUTO) 3.8 % (0.0-6.0); HEMATOCRIT 27 % (39-51); HEMOGLOBIN 8.7 g/dL (13.5-17.5); LYMPHOCYTES # (AUTO) 1.2 /CMM (0.8-4.8); LYMPHOCYTES % (AUTO) 22.3 % (20.0-44.0); MEAN CORPUSCULAR HGB CONC 33 g/dl (31.0-36.0); MEAN CORPUSCULAR VOLUME 86 fL (80-96); MONOCYTES # (AUTO) 0.6 /CMM (0.1-1.30); MONOCYTES % (AUTO) 11.4 % (2.0-12.0); NEUTROPHILS # (AUTO) 3.4 /CMM (1.8-8.9); NEUTROPHILS % (AUTO) 61.9 % (43.0-81.0); PLATELET COUNT (AUTO) 401 /CMM (150-450); RED BLOOD CELL COUNT(AUTO) 3.09 MIL/uL (4.5-6.0); WHITE BLOOD COUNT (AUTO) 5.4 K/uL (4.3-11.0)
[2018-12-07 07:19] LABS: CALCIUM, SERUM 7.9 mg/dL (8.5-10.1); CREATININE 0.9 mg/dL (0.6-1.3); POTASSIUM 3.7 mmol/L (3.5-5.1)
--- NOTE | 2018-12-07 07:22 | NUR ---
INITIAL RECEIVED PATIENT IN BED COMFORTABLY A/O X2 WITH SOME CONFUSION. PATIENT IS ON ROOM AIR WITH NO SOB OR ANY OTHER DISTRESS. LEFT ARM 20G RUNNING NS@75ML/HR. PATIENT IS ON BED REST WITH SIDE RAILS UP X3. REPORTS NO PAIN AT THE MOMENT. APPLIED ALL SAFETY PRECAUTIONS CALL LIGHT WITHIN REACH, BED LOCKED IN LOW POSITION. WILL CONTINUE TO MONITOR.
[2018-12-07] MEDS: PANTOPRAZOLE 40 MG TABLET.DR PO SCH (07:35)
[2018-12-07] MEDS: CALCIUM CARB 250MG /VITAMIN D 1 UDTAB PO SCH (08:46)
[2018-12-07] MEDS: FERROUS SULFATE (325 MG) 325 MG/TAB TABLET PO SCH (08:46)
[2018-12-07] MEDS: ASPIRIN 81 MG TAB.CHEW PO SCH (08:46)
[2018-12-07] MEDS: CILOSTAZOL 100 MG TABLET PO SCH ×2 (08:46→17:49)
[2018-12-07] MEDS: TAMSULOSIN 0.4 MG CAP.SR.24H PO SCH (08:46)
[2018-12-07] MEDS: ASCORBIC ACID 500 MG TABLET PO SCH (08:46)
[2018-12-07] MEDS: MULTIVIT W/MINERALS 1 TAB TABLET PO SCH (08:46)
[2018-12-07] MEDS: LEVOTHYROXINE SODIUM 50 MCG TABLET PO SCH (08:47)
[2018-12-07] MEDS: METOPROLOL TARTRATE 25 MG TABLET PO SCH ×2 (08:47→17:54)
[2018-12-07] MEDS: ENSURE ENLIVE 237 ML LIQUID (VANILLA) PO SCH ×2 (08:48→17:54)
[2018-12-07] MEDS: PROSOURCE / PROSTAT (PYXIS) 30 ML UDC PO SCH (08:48)
[2018-12-07] MEDS: IV NS 0.9% 1,000 ML IV PRN ×2 (10:13→22:24)
--- NOTE | 2018-12-07 18:21 | NUR ---
INITIAL CALM AND QUIET THRU OUT SHIFT.PAIN MANAGEMENT EFFECTIVE,ABDUCTION PILLOW IN PLACE.SITTER AT BEDSIDE.IN NO ACUTE DISTRESS.WILL ENDORSE TO NIGHT NURSE FOR CONTINUITY OF CARE.
--- NOTE | 2018-12-07 19:15 | NUR ---
RN NOTES: RECEIVED AWAKE ON BED, A/OX 1 LOOKS CONFUSED, DEMENTED,,INCONTINENT USES DIAPER, WITH NS AT 75 ML/HR ,LEFT HAND G#20 INTACT AND PATENT, DRESSING ON LEFT HEEL INTACT, ABDUCTION PILLOW ON AT ALL TIMES. BLE OFF LOADED, 1;1 SITTER AVAILABLE AT BED SIDE. HE IS LYING COMFORTABLY IN BED,ON SEMI FOWLERS POSITION, BED LOW AND LOCKED, CALL LIGHT WITHIN EASY REACH, FALL,SAFETY AND ASPIRATION PRECAUTION OBSERVED.
--- NOTE | 2018-12-07 19:56 | NUR ---
RN NOTES: 1;1 SITTER NOTIFIED RN THAT PATIENT IS FEVERISHED, T-99.3, INSTRUCT TO DO SPONGE BATH AND PUT SOME ICE PACK ON ARM PIT AND INGINAL AREA, WILL REPEAT TEMP LATER AND KEPT ON CLOSE WATCH.
[2018-12-07 20:00] VITALS: BP 116/55
--- NOTE | 2018-12-07 20:33 | NUR ---
RN NOTES: TEMPERATURE WAS RECHECKED STILL T-99.3, GIVEN TYLENOL PRN FOR MILD PAIN AND FOR SLIGHT FEVERISH, COOLING MEASURE CONTINUED.
--- NOTE | 2018-12-07 21:52 | NUR ---
RN NOTES: AT 2134, COOLING COMPRESS CONTINUED, TEMPERATURE [id number], NURSING CARE EFFECTIVE.CONTINUE TO KEPT IN CLOSE WATCH.
--- NOTE | 2018-12-07 22:25 | NUR ---
RN NOTES: IVF CONSUMED, REPLACE WITH NEW BAG OF NS AT 75 ML/HR ONGOING VIA INFUSION PUMP, IV SITE INTACT, TURNING AND REPOSITIONING DONE, KEPT ON SEMI FOWLERS POSITION.CALL LIGHT WITHIN EASY REACH, SITTER AT BED SIDE.
[2018-12-08 04:00] VITALS: BP 119/61
--- NOTE | 2018-12-08 06:25 | NUR ---
RN NOTES: ABLE TO SLEEP AND REST, PASS VERY SMALL AMOUNT OF STOOL, MORNING CARE DONE, CLEAN AND CHANGE, IVF CONTINUE, ENDORSED FOR CONTINUITY OF CARE.
[2018-12-08 06:32] LABS: BASOPHILS % (AUTO) 0.2 % (0.0-2.0); EOSINOPHILS % (AUTO) 4.2 % (0.0-6.0); HEMATOCRIT 28 % (39-51); HEMOGLOBIN 8.7 g/dL (13.5-17.5); LYMPHOCYTES # (AUTO) 1.1 /CMM (0.8-4.8); MEAN CORPUSCULAR HGB CONC 31 g/dl (31.0-36.0); MEAN CORPUSCULAR VOLUME 90 fL (80-96); MONOCYTES # (AUTO) 0.7 /CMM (0.1-1.30); MONOCYTES % (AUTO) 11.4 % (2.0-12.0); NEUTROPHILS # (AUTO) 4.4 /CMM (1.8-8.9); NEUTROPHILS % (AUTO) 67.2 % (43.0-81.0); PLATELET COUNT (AUTO) 366 /CMM (150-450); RED BLOOD CELL COUNT(AUTO) 3.15 MIL/uL (4.5-6.0); WHITE BLOOD COUNT (AUTO) 6.6 K/uL (4.3-11.0)
[2018-12-08 06:53] LABS: CALCIUM, SERUM 7.9 mg/dL (8.5-10.1); POTASSIUM 3.7 mmol/L (3.5-5.1)
--- NOTE | 2018-12-08 07:00 | NUR ---
RN OPENING NOTE PATIENT IN BED, ASLEEP BUT EASILY AROUSABLE TO TOUCH, ON 2L NC, NO COMPLAINS OF ANY SOB AT THIS TIME NOR PAIN. HAS A LEFT HAND #20 WITH NS AT 75 ML/HR. BED LOCKED AND IN LOWEST POSITION CALL LIGHT WITHIN REACH. SITTER AT BEDSIDE. WILL CONT TO MONITOR
[2018-12-08] MEDS: LEVOTHYROXINE SODIUM 50 MCG TABLET PO SCH (08:21)
[2018-12-08] MEDS: CALCIUM CARB 250MG /VITAMIN D 1 UDTAB PO SCH (08:21)
[2018-12-08] MEDS: FERROUS SULFATE (325 MG) 325 MG/TAB TABLET PO SCH (08:21)
[2018-12-08] MEDS: CILOSTAZOL 100 MG TABLET PO SCH ×2 (08:21→17:32)
[2018-12-08] MEDS: PANTOPRAZOLE 40 MG TABLET.DR PO SCH (08:21)
[2018-12-08] MEDS: ASCORBIC ACID 500 MG TABLET PO SCH (08:22)
[2018-12-08] MEDS: TAMSULOSIN 0.4 MG CAP.SR.24H PO SCH (08:22)
[2018-12-08] MEDS: METOPROLOL TARTRATE 25 MG TABLET PO SCH ×2 (08:22→17:35)
[2018-12-08] MEDS: MULTIVIT W/MINERALS 1 TAB TABLET PO SCH (08:22)
[2018-12-08] MEDS: ASPIRIN 81 MG TAB.CHEW PO SCH (08:22)
[2018-12-08] MEDS: ENSURE ENLIVE 237 ML LIQUID (VANILLA) PO SCH ×2 (08:36→18:11)
[2018-12-08] MEDS: PROSOURCE / PROSTAT (PYXIS) 30 ML UDC PO SCH (08:38)
--- NOTE | 2018-12-08 10:30 | NUR ---
RN NOTE DR HARDING AT BEDSIDE, [facility] PATIENT BACK TO [facility]. PER CM, TECHNICAL TRAINER AT 1400
--- NOTE | 2018-12-08 18:22 | NUR ---
RN NOTE PT EVAL DONE TODAY. PT CALLED [facility] TO GIVE REPORT AND INSTRUCTIONS TO THEIR FACILITY'S PT. CALLED FOR NURSING REPORT WELL, REPORT GIVEN TO MAHIN YODER. MUSEUM EDUCATOR TIME UPDATED AT 1830
--- NOTE | 2018-12-08 18:58 | NUR ---
RN CLOSING NOTE PATIENT SUPPOSED TO BE PICKED UP AT 1830. AMBULANCE RUNNING LATE. WILL ENDORSE TO NOC SHIFT FOR TERESITA. PATIENT STABLE, VSS. NO SIGNS OF ANY PAIN AND NO SOB. HAS LEFT HAND #20, SL. REPORT ALREADY GIVEN TO FACILITY. PT EVAL DONE. WILL ENDORSE TO NOC SHIFT
[2018-12-08 20:00] VITALS: BP 114/49
--- NOTE | 2018-12-08 21:47 | NUR ---
-1/ANDRE PT OFF THE FLOOR WITH TRANSPORT FOR TRANSFER TO [facility].
== END 2018-12-08 21:45 | DRG 559 ==
LOC: ER 11:22 → MEDSG1 13:06
PROVIDERS: ADMIT Family Medicine; ATTEND Family Medicine
PROC: 0SWBXJZ Revision of Synthetic Substitute in Left Hip Joint, External Approach (ICD-10-PCS; principal; 2018-12-07)
DX: T84.021A Dislocation of internal left hip prosthesis, initial encounter (principal); E43 Unspecified severe protein-calorie malnutrition; N17.9 Acute kidney failure, unspecified; E03.9 Hypothyroidism, unspecified; Y79.2 Prosthetic and other implants, materials and accessory orthopedic devices associated with adverse incidents; I10 Essential (primary) hypertension; Z68.26 Body mass index [BMI] 26.0-26.9, adult; Z86.73 Personal history of transient ischemic attack (TIA), and cerebral infarction without residual deficits; Z79.899 Other long term (current) drug therapy; Z79.82 Long term (current) use of aspirin; Z79.02 Long term (current) use of antithrombotics/antiplatelets; N40.0 Benign prostatic hyperplasia without lower urinary tract symptoms; I73.9 Peripheral vascular disease, unspecified; F03.90 Unspecified dementia, unspecified severity, without behavioral disturbance, psychotic disturbance, mood disturbance, and anxiety; E86.0 Dehydration; E78.5 Hyperlipidemia, unspecified; D63.8 Anemia in other chronic diseases classified elsewhere; D47.3 Essential (hemorrhagic) thrombocythemia; R73.9 Hyperglycemia, unspecified; L89.629 Pressure ulcer of left heel, unspecified stage; D50.9 Iron deficiency anemia, unspecified
CPT/HCPCS: 36415; 71045-TC; 73020; 73502; 80048-TC; 80061-TC; 80076-TC; 82728-TC; 83540-TC; 83735-TC; 84100-TC; 84484-TC; 85025-TC; 85730-TC; 86850-TC; 87081-TC; 97112-TC; 97530-TC; A6253; G0378; J0330; J2704; J3010; J3490; J7030; L1830

== ENCOUNTER 2018-12-20 12:37 | Emergency (ER) | payer MEDICARE, BC ==
[~2018-12-20] VITALS: Ht 172.7 cm; Wt 74.8 kg
[~2018-12-20 12:37] MED LIST changes: +ASCO500T9 PO; -ATOR80TA PO; +CALC-481 PO; -ENOX40DI SQ; +FERR325T23 PO; -MEMA10TA PO; +PROT946L PO
[2018-12-20] MEDS ORDERED: IV NS 0.9% 500 ML BAG IV ONE (13:00)
[2018-12-20] MEDS ORDERED: ONDANSETRON HCL/PF 4 MG/2 ML VIAL IVP ONE (13:00)
[2018-12-20] MEDS ORDERED: ONDANSETRON HCL/PF 4 MG/2 ML VIAL ONE (13:02)
--- NOTE | 2018-12-20 13:18 | NUR ---
PATIENT BIB BY RA FROM SNF FOR GENERALIZED WEAKNESS. AAOX3. NOT IN ANY DISTRESS. NO SOB. VSS. WILL CONTINUE TO MONITOR FOR SAFETY.
--- NOTE | 2018-12-20 13:27 | NUR ---
BLOOD COLLECTED AND SENT TO LAB
[2018-12-20] MEDS ORDERED: PANT40TA2 PO (13:30)
[2018-12-20 13:32] LABS: BASOPHILS # (AUTO) 0.1 /CMM (0.0-0.2); BASOPHILS % (AUTO) 0.9 % (0.0-2.0); EOSINOPHILS % (AUTO) 3.3 % (0.0-6.0); HEMATOCRIT 29 % (39-51); HEMOGLOBIN 9.4 g/dL (13.5-17.5); LYMPHOCYTES # (AUTO) 1.7 /CMM (0.8-4.8); LYMPHOCYTES % (AUTO) 22.2 % (20.0-44.0); MEAN CORPUSCULAR HGB CONC 32 g/dl (31.0-36.0); MEAN CORPUSCULAR VOLUME 85 fL (80-96); MONOCYTES # (AUTO) 1.1 /CMM (0.1-1.30); MONOCYTES % (AUTO) 14.7 % (2.0-12.0); NEUTROPHILS # (AUTO) 4.5 /CMM (1.8-8.9); NEUTROPHILS % (AUTO) 58.9 % (43.0-81.0); PLATELET COUNT (AUTO) 391 /CMM (150-450); RED BLOOD CELL COUNT(AUTO) 3.41 MIL/uL (4.5-6.0); WHITE BLOOD COUNT (AUTO) 7.7 K/uL (4.3-11.0)
--- NOTE | 2018-12-20 13:35 | NUR ---
URINE COLLECTED AND SENT TO LAB
[2018-12-20 13:42] LABS: CALCIUM, SERUM 8.3 mg/dL (8.5-10.1); POTASSIUM 4.1 mmol/L (3.5-5.1)
[2018-12-20 13:43] LABS: APPEARANCE,URINE Clear (CLEAR); BACTERIA,URINE Rare /HPF (None Seen); BILIRUBIN,URINE Negative (NEGATIVE); BLOOD, URINE Negative Ery/uL (NEGATIVE); COLOR,URINE Yellow (YELLOW); KETONES,URINE Negative (NEGATIVE); LEUKOCYTE ESTERASE ,URINE Negative (NEGATIVE); NITRITE, URINE Negative (NEGATIVE); PH,URINE 5.5 (5.0-8.0); PROTEIN,URINE Negative (NEGATIVE); RBC,URINE 0-2 /HPF (0-2); SQUAMOUS EPITHELIAL CELL,UR None Seen /HPF (None Seen); UGLUCOSE Negative (NEGATIVE); WBC,URINE 0-2 /HPF (0-3)
[2018-12-20 13:47] LABS: ALBUMIN 2.5 g/dL (3.4-5.0); BILIRUBIN,DIRECT 0.2 mg/dL (0.0-0.2); BILIRUBIN,TOTAL 0.9 mg/dL (0.2-1.0); TOTAL PROTEIN, SERUM 6.2 g/dL (6.4-8.2)
--- NOTE | 2018-12-20 13:47 | NUR ---
CALLED [facility]. 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
--- NOTE | 2018-12-20 14:31 | NUR ---
CALLED [facility] FOR TELE BED
[2018-12-20] MEDS ORDERED: IV NS 0.9% 1,000 ML BAG IV ONE (15:00)
--- NOTE | 2018-12-20 17:13 | NUR ---
PT ACCEPTED AT [facility]. CALL REPORT [phone]
--- NOTE | 2018-12-20 17:40 | NUR ---
REPORT GIVEN TO DANICA STOCKTON AT [facility].
--- NOTE | 2018-12-20 17:41 | NUR ---
CALLED [facility] FOR [facility]. ETA [id number] TRIP [id number]
--- NOTE | 2018-12-20 18:37 | NUR ---
REPORT GIVEN TO YOGI ARMENTA FOR PATIENT TRANSPORT TO [facility].
[2018-12-20 18:49] VITALS: BP 118/57
== END 2018-12-20 18:50 | disposition home or self-care (01) ==
LOC: ER 12:38
DX: G93.40 Encephalopathy, unspecified (principal); F03.90 Unspecified dementia, unspecified severity, without behavioral disturbance, psychotic disturbance, mood disturbance, and anxiety; E86.0 Dehydration; I10 Essential (primary) hypertension; E78.5 Hyperlipidemia, unspecified; E03.9 Hypothyroidism, unspecified; Z86.73 Personal history of transient ischemic attack (TIA), and cerebral infarction without residual deficits; Z79.899 Other long term (current) drug therapy; Z79.82 Long term (current) use of aspirin
CPT/HCPCS: 36415; 70450; 71045; 72170; 80048; 80076; 81001; 82962; 83690; 84443; 85025; 87081; 93005; 96361; 96374; 99284; J2405; J7030; J7040; 81000-TC